=== PATIENT | female | born 1995 | race Caucasian/White ===

== ENCOUNTER → 2020-07-31 | Outpatient (CLI) | payer OTHER | END | disposition home or self-care (01) | LOC: US 08:27 | PROVIDERS: ATTEND Nurse Practitioner Primary Care | DX: R10.9 Unspecified abdominal pain (principal); R10.2 Pelvic and perineal pain; Z97.5 Presence of (intrauterine) contraceptive device ==

== ENCOUNTER → 2024-05-10 | Outpatient (CLI) | payer BC | END | disposition home or self-care (01) | LOC: RAD 12:50 | PROVIDERS: ATTEND Nurse Practitioner Primary Care | DX: M25.531 Pain in right wrist (principal); M79.641 Pain in right hand ==